=== PATIENT | female | born 1930 | race Caucasian/White ===

== ENCOUNTER → 2020-12-29 | Day surgery (SDC) | payer MEDICARE, MEDICAID ==
[~2020-12-29] VITALS: Ht 152.4 cm; Wt 35.8 kg
[~2020-12-29] MED LIST: ACETYLCHOLINE CHLORIDE INTRAOCULAR SOLUTION 1:100 ELECTROLYTE DILUENT IO ONE; BALANCED SALT IRRIG SOLN 15ML ONE; BALANCED SALT IRRIG SOLN COMB1 500ML OP SCH; BUPIVACAINE HCL/PF 0.75% (7.5MG/ML) 10ML ONE; CHOL100046 PO; CRAN450T10 MT; DOCU-150 PO; DONE5TAB7 PO; FLUT1AER INH; HYALURONATE SODIUM 10 MG/ML 0.55ML SYRINGE IO ONE; LABETALOL HCL 5MG/ML VIAL 20ML IV ONE; LACTATED RINGERS 1,000 ML IV SCH; LIDOCAINE HCL 2%/EPINEPHRINE 1:100,000 20 ML VIAL INFIL ONE; MEMA10TA2 MT; MIRT7.5T11 PO; PHENYLEPHRINE 2.5% OPHTH 15 DROP/ML BOTTLE RIGHTEYE ONE; PHENYLEPHRINE HCL 2.5% OPHTH DROPS 2ML ONE; PROPOFOL 200MG/20ML VIAL IV ONE; SENN-257 MT; TETRACAINE 0.5% OPHTH DROPS 4ML ONE; TROPICAMIDE 1% OPHTH DROPS 15ML ONE; TROPICAMIDE 1% OPHTH DROPS 15ML RIGHTEYE ONE
== END | disposition home or self-care (01) ==
LOC: OR 09:27
PROVIDERS: ATTEND Ophthalmology
DX: H25.89 Other age-related cataract (principal); E78.00 Pure hypercholesterolemia, unspecified; J44.9 Chronic obstructive pulmonary disease, unspecified; H53.8 Other visual disturbances; I50.9 Heart failure, unspecified; M81.0 Age-related osteoporosis without current pathological fracture; Z79.51 Long term (current) use of inhaled steroids; Z79.899 Other long term (current) drug therapy; Z87.440 Personal history of urinary (tract) infections; Z98.890 Other specified postprocedural states
CPT/HCPCS: 66984; C1769; C1893; J2704; J3490; V2632

== ENCOUNTER → 2021-03-30 | Day surgery (SDC) | payer MEDICARE, MEDICAID ==
[~2021-03-30] VITALS: Ht 152.4 cm; Wt 35.4 kg
[~2021-03-30] MED LIST changes: -ACETYLCHOLINE CHLORIDE INTRAOCULAR SOLUTION 1:100 ELECTROLYTE DILUENT IO ONE; -BALANCED SALT IRRIG SOLN 15ML ONE; -BUPIVACAINE HCL/PF 0.75% (7.5MG/ML) 10ML ONE; +EPHEDRINE SULFATE 50MG/ML VIAL ONE; -LABETALOL HCL 5MG/ML VIAL 20ML IV ONE; -LIDOCAINE HCL 2%/EPINEPHRINE 1:100,000 20 ML VIAL INFIL ONE; +METHYLPREDNISOLONE SOD SUCC 40 MG/ML VIAL ONE; +PHENYLEPHRINE 2.5% OPHTH 15 DROP/ML BOTTLE LEFTEYE ONE; -PHENYLEPHRINE 2.5% OPHTH 15 DROP/ML BOTTLE RIGHTEYE ONE; -PHENYLEPHRINE HCL 2.5% OPHTH DROPS 2ML ONE; -TETRACAINE 0.5% OPHTH DROPS 4ML ONE; +TOBRAMYCIN/DEXAMETHASONE OPTH DROPS 2.5ML OP SCH; +TRIAMCINOLONE ACETONIDE 40MG/ML 1ML VIAL ONE; +TROPICAMIDE 1% OPHTH DROPS 15ML LEFTEYE ONE; -TROPICAMIDE 1% OPHTH DROPS 15ML ONE; -TROPICAMIDE 1% OPHTH DROPS 15ML RIGHTEYE ONE
== END | disposition home or self-care (01) ==
LOC: OR 08:14
PROVIDERS: ATTEND Ophthalmology
DX: H25.89 Other age-related cataract (principal); M81.0 Age-related osteoporosis without current pathological fracture; J44.9 Chronic obstructive pulmonary disease, unspecified; I50.9 Heart failure, unspecified; Z79.51 Long term (current) use of inhaled steroids; Z79.899 Other long term (current) drug therapy; Z87.440 Personal history of urinary (tract) infections
CPT/HCPCS: 66984; J2704; J3490; V2632; J2920; J3301